=== PATIENT | male | born 1955 | race Caucasian/White ===

== ENCOUNTER 2024-01-02 18:05 | Emergency (ER) | payer MEDICARE, OTHER, SELFPAY ==
[2024-01-02 18:07] VITALS: BP 171/91
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
[2024-01-02] MEDS: ADACEL 0.5 ML IM (18:37)
[2024-01-02 18:54] LABS: % Basophils 0.4 % (0-2); % Eosinophils 0.2 % (0-6); % Immature Granulocytes 0.4 % (0-0.5); % Lymphocytes 7.5 % (20.5-51.1); % Monocytes 6.7 % (1.7-9.3); % Neutrophils 84.8 % (42.2-75.2); Absolute Basophils 0.1 10^3/uL (0-0.2); Absolute Immature Granulocytes 0.1 10^3/uL (0-0.05); Absolute Lymphocytes 1.1 10^3/uL (1.2-3.4); Hematocrit 39.1 % (39.0-52.0); Hemoglobin 13.9 g/dL (13.0-18.0); Mean Corp Hgb Conc. 35.5 g/dL (33.0-37.0); Mean Corpuscular Hgb 32.6 pg (27.0-31.0); Mean Corpuscular Volume 91.6 fL (80.0-94.0); Mean Platelet Volume 8.7 fL (7.4-10.4); Nucleated Red Blood Cells % 0 % (-); Platelet Count 315 10^3/uL (130-400); Red Blood Cell Count 4.27 10^6/uL (4.70-6.10); Red Cell Dist. Width 13.3 % (11.5-14.5); White Blood Cell Count 14.1 10^3/uL (4.8-10.8)
[2024-01-02 19:10] LABS: Blood Urea Nitrogen 23 mg/dl (9-20); Calcium 9.5 mg/dl (8.4-10.2); Carbon Dioxide 22 mmol/L (22-30); Chloride 99 mmol/L (98-107); Glucose 108 mg/dl (70-99); Potassium 3.9 mmol/L (3.5-5.1); Sodium 134 mmol/L (135-145); eGFR > 60.00
[2024-01-02 22:33] VITALS: BP 144/78
== END 2024-01-02 22:50 | disposition home or self-care (01) ==
LOC: EMR 18:05
PROVIDERS: EMERGENCY PHYSICIAN Emergency Medicine; FAMILY PHYSICIAN Family Medicine
DX: S40.211A Abrasion of right shoulder, initial encounter (principal); S60.512A Abrasion of left hand, initial encounter; S60.511A Abrasion of right hand, initial encounter; S50.811A Abrasion of right forearm, initial encounter; S20.219A Contusion of unspecified front wall of thorax, initial encounter; V29.008A Other motorcycle driver injured in collision with unspecified motor vehicles in nontraffic accident, initial encounter; Y92.410 Unspecified street and highway as the place of occurrence of the external cause; Z23 Encounter for immunization; J44.9 Chronic obstructive pulmonary disease, unspecified; I10 Essential (primary) hypertension
CPT/HCPCS: 99283; 90471; 70450; 71045; 71260; 72125; 73610; 74177; 80048; 85025; 86850; 86900; 86901; 90715; Q9967

== ENCOUNTER 2024-08-29 19:31 | Emergency (ER) | payer MEDICARE, OTHER, SELFPAY ==
[2024-08-29] VITALS (8 sets, daily range): BP systolic 100–144; BP diastolic 59–107
--- NOTE | 2024-08-29 19:59 | ED.GENMED ---
History of Present Illness
<Duc Goins PA-C - Last Filed: 08/29/24 22:14>
General
Chief Complaint: Heart Rate Problem
Source: patient
Exam Limitations: none
Time Seen by Provider: 08/29/24 19:50
History of Present Illness
History of Present Illness:
68-year-old male presents with onset of what he felt as palpitations and thinks his atrial fibrillation that started just about 2 hours prior to arrival. He was sitting watching television and he felt palpitations start. He has had a history of
paroxysmal atrial fibrillation. Not currently anticoagulated. He is on metoprolol. He has had a history of cardioversion.
Past History
<Duc Goins PA-C - Last Filed: 08/29/24 22:14>
Past History
ED Past Medical History: Arrthythmia, Cancer (Prostate), COPD and HTN
ED Past Surgical History: None
Social History
Alcohol: Occasional
Living: alone
Phy Exam
<Duc Goins PA-C - Last Filed: 08/29/24 22:14>
Physical Exam
Physical Exam:
General: Well-appearing male no acute respiratory distress
HEENT: Normocephalic atraumatic
Heart: Irregular rate and rhythm
Lungs: Clear
Course
<Duc Goins PA-C - Last Filed: 08/29/24 22:14>
Orders/Labs/Results
Orders:
Orders
08/29/24 19:32
ECG [Electrocardiogram (*1)] Urgent
Reason for Study: Palpitations
EKG- Treatment ONCE
08/29/24 20:51
Propofol [Diprivan] 20 ml .ROUTE .STK-MED
08/29/24 21:00
Electrocardiogram (*1) Urgent
Reason for Study: Other
Other Reason for Exam: cardioversion
EKG- Treatment ONCE
Vital Signs
Initial and Last Documented VS:
Initial Vital Signs
Temp Pulse Resp BP Pulse Ox
97.9 F 82 18 144/107 98
08/29/24 19:40 08/29/24 19:40 08/29/24 19:40 08/29/24 19:40 08/29/24 19:40
Last Documented Vital Signs
Temp Pulse Resp BP Pulse Ox
98.0 F 65 16 119/70 98
08/29/24 20:58 08/29/24 22:00 08/29/24 22:00 08/29/24 22:00 08/29/24 22:00
<Clarence Galan, DO - Last Filed: 08/29/24 21:47>
Orders/Labs/Results
Orders:
Orders
08/29/24 19:32
ECG [Electrocardiogram (*1)] Urgent
Reason for Study: Palpitations
EKG- Treatment ONCE
08/29/24 20:51
Propofol [Diprivan] 20 ml .ROUTE .STK-MED
08/29/24 21:00
Electrocardiogram (*1) Urgent
Reason for Study: Other
Other Reason for Exam: cardioversion
EKG- Treatment ONCE
Vital Signs
Initial and Last Documented VS:
Initial Vital Signs
Temp Pulse Resp BP Pulse Ox
97.9 F 82 18 144/107 98
08/29/24 19:40 08/29/24 19:40 08/29/24 19:40 08/29/24 19:40 08/29/24 19:40
Last Documented Vital Signs
Temp Pulse Resp BP Pulse Ox
98.0 F 65 16 119/70 98
08/29/24 20:58 08/29/24 22:00 08/29/24 22:00 08/29/24 22:00 08/29/24 22:00
Procedures
<Duc Goins PA-C - Last Filed: 08/29/24 22:14>
Cardioversion
Indication:: Afib
Synchronized?: Yes
Energy Used: 200 joules
Number of attempts: 1
Successful?: Yes
ASA Risk Score: Class I
Any reaction or bad outcome to prior sedation/anesthesia?: No history of a reaction
Sedation level to be attained: moderate
Chart and allergies reviewed: Yes
Patient reassessed prior to sedation: Yes
Time out completed at (validating right patient & procedure): 08:58
History of difficult intubation: No
Airway free of obstruction: Yes
Patient has a gag reflex: Yes
Patient is able to open mouth: Yes
Patient has no dentures: Yes
Patient has no loose teeth: Yes
Medication administered by Provider during Moderate Sedation: IV Propofol (mg)
Total dose administered: 70
Time drug administered: 08:58
Start Time: 08:58
Stop Time: 09:08
<Duc Goins PA-C - Last Filed: 08/29/24 22:14>
MDM/Problems Addressed
Differential Diagnosis Includes:
Patient with palpitations and sensation is in A-fib. This started just 2 hours ago. EKG confirms atrial fibrillation. His vitals are stable otherwise. Patient is positive his symptoms started 2 hours ago. He is not anticoagulated. Discussed
with the patient the importance of the onset and timing of the atrial fibrillation given the potential for cardioversion and risk for clot formation. He understood this and states it was just 2 hours ago.
<Duc Goins PA-C - Last Filed: 08/29/24 22:14>
*Critical Care Note
Total Time (30-74mins, 75-104mins- exclusive of procedures): Not Applicable
<Duc Goins PA-C - Last Filed: 08/29/24 22:14>
Update Note
Update Note:
Patient came in in atrial fibrillation with onset 2 hours prior to arrival. Consent was obtained for moderate sedation and cardioversion. Patient was successfully cardioverted with 200 J of synchronized energy. He immediately went back into a
sinus rhythm. Repeat EKG shows sinus rhythm with PACs. He recovered from his sedation and will be discharged. Patient has Eliquis at home. He was advised to restart Eliquis 5 mg twice a day until seen by his cardiology team.
ED Attending Note
<Duc Goins PA-C - Last Filed: 08/29/24 22:14>
-
Portions of this chart may have been created with voice recognition software.� Occasional wrong word or��sound alike� substitutions may have occurred due to the inherent limitations of voice recognition software.
<Clarence Galan DO - Last Filed: 08/29/24 21:47>
ED Attending Note
Patient seen and examined by attending physician: Yes
I performed the substantive portion of visit, reviewed & personally made and approve the management plan that is documented in note by myself or ELADIA.: Yes
ED Attending Note:
Patient is a 68-year-old male with a history of atrial fibrillation who approximately an hour prior to the emergency department was sitting down to watch a football game after eating macaroni and cheese and felt himself going to atrial fibrillation.
Patient has been off Eliquis for a while. Patient denies any chest pain or shortness of breath but does feel mildly lightheaded and feels his heart racing. Patient denies any recent GI or symptoms. Patient denies fever or chills. On physical
exam patient does not appear to be in any distress. Heart is irregular but normal rate. No neck vein distention. Lungs are clear. Abdomen soft nontender. Patient has good peripheral pulses and no edema or cyanosis. Patient agreed to electrical
cardioversion. Patient was sedated appropriately with propofol and was successfully cardioverted at 200 J. Patient tolerated procedure well. Patient will be referred back to his cost accountant. Patient is considering ablation.
Discharge Plan
Departure
Patient Disposition: Home (Routine Discharge)
Date of Disposition: 08/29/24
Time of Disposition: 22:13
Patient with high blood pressure during this ER visit?: No
Discharge Problem:
Atrial fibrillation with controlled ventricular response, Encounter for cardioversion procedure
Instructions: Atrial Fibrillation (DC), Cardioversion (DC), MODERATE SEDATION ADULT
Prescriptions:
No Action
metoprolol tartrate 25 MG tablet
12.5 mg PO BID
apixaban [Eliquis] 5 MG tablet
5 mg PO BID
Eliquis 5 mg tablet
5 mg PO BID Qty: 60 2RF
Referrals:
Bro Valadez MD [Family Provider] -
Activity Restrictions/Additional Instructions:
Please start Eliquis 5 mg twice a day. Please follow-up with your cost accountant. Return here if needed otherwise
Interventions
Interventions:
*Risk Screen - Suicide Last Done: 08/29/24 19:40
*General Assessment Last Done: 08/29/24 19:40
*Neglect/Abuse Screening Last Done: 08/29/24 19:40
ED- Fall Risk Assessment Last Done: 08/29/24 20:01
ED- Cardiac Assessment Last Done: 08/29/24 20:01
ED- Pulmonary Assessment Last Done: 08/29/24 20:01
Discharge Date and Time
Print Language: HUNGARIAN
== END 2024-08-29 22:49 | disposition home or self-care (01) ==
LOC: EMR 19:31
PROVIDERS: EMERGENCY PHYSICIAN Emergency Medicine; FAMILY PHYSICIAN Family Medicine
DX: I48.91 Unspecified atrial fibrillation (principal); I10 Essential (primary) hypertension; J44.9 Chronic obstructive pulmonary disease, unspecified; Z79.899 Other long term (current) drug therapy
CPT/HCPCS: 92960; 99152; 99285; 93005

== ENCOUNTER 2024-11-30 10:00 | Day surgery (SDC) | payer MEDICARE, OTHER, SELFPAY ==
[2024-11-30 11:19] VITALS: BMI 26.4
== END 2024-11-30 12:45 ==
LOC: CATH 10:00
PROVIDERS: ATTENDING PHYSICIAN Student in an Organized Health Care Education/Training Program; FAMILY PHYSICIAN Family Medicine; OTHER PHYSICIAN Internal Medicine Cardiovascular Disease
DX: I48.0 Paroxysmal atrial fibrillation (principal); I10 Essential (primary) hypertension; E78.00 Pure hypercholesterolemia, unspecified; Z87.891 Personal history of nicotine dependence; Z85.46 Personal history of malignant neoplasm of prostate; Z79.01 Long term (current) use of anticoagulants
CPT/HCPCS: 92960; 93005

== ENCOUNTER 2025-01-12 07:57 | Day surgery (SDC) | payer MEDICARE, OTHER, SELFPAY ==
[2024-12-24 09:01] VITALS: BMI 27.7
[2025-01-12] VITALS (10 sets, daily range): BP systolic 88–129; BP diastolic 52–73; BMI 26.3
[2025-01-12 10:34] LABS: ACT-LR - POC 292 Seconds (116-155)
[2025-01-12 11:09] LABS: ACT-LR - POC > 397 Seconds (116-155)
[2025-01-12 11:13] LABS: ACT-LR - POC 393 Seconds (116-155)
--- NOTE | 2025-01-12 11:26 | ITS.CL.ABL ---
[facility] - Ablation
Ablation
Procedure Report:
AFIB / A flutter ablation:
Mr. Lucero is a very pleasant 69 yr old gentleman with medical history significant for symptomatic paroxysmal atrial fibrillation is here in the EP lab for atrial fibrillation ablation
Date of Procedure:
01/12/2025
Indications:
Symptomatic paroxysmal atrial fibrillation
Pre-Operative Diagnosis:
Paroxysmal atrial fibrillation
Post-Operative Diagnosis:
Paroxysmal atrial fibrillation
Procedure Performed:
Atrial fibrillation ablation with wide area circumferential ablation (WACA) approach for pulmonary vein isolation
Performing Physician:
Jerrell Slaughter MD
Assistants:
EP staff
Anesthesia:
See anesthesia records
Detailed Description of the Procedure:
Written informed consent was obtained from the patient after a full explanation of the risks and benefits of the procedure including the risks of sedation and anesthesia.
The patient was brought to the electrophysiology laboratory in stable condition in fasting state. Continuous electrocardiographic and hemodynamic monitoring was initiated.
The initial rhythm was sinus rhythm.
The procedure site was meticulously prepared with surgical scrub and allowed to dry with no pooling. Sterile draping was applied to cover the procedure site. The image intensifier was draped with sterile bag and positioned over the patient. After
infusion of local anesthetic, vascular access was obtained under ultrasound guidance and sheaths were placed over guide wire as detailed below.
The images of the ultrasound of the femoral vessels were stored in patient chart.
Sheath and Catheter Placement:
In the right femoral vein, a 10-Kyrgyz sheath was placed under ultrasound guidance for use during the ablation procedure. In the right femoral vein, another 9-Fr sheath was placed for use during intracardiac echo procedure.
The sheaths were upgraded as needed during the case. Intracardiac catheters were positioned using direct fluoroscopic guidance.� ICE catheter was placed in RA. The following catheters / sheaths were placed
Sheaths:
��������� Agilis sheath in right femoral vein upgraded from 10Fr in right femoral vein
��������� 9Fr in right femoral vein
Catheters:
��������� The Affera Sphere 9 catheter -bidirectional D/F� - at locations of HRA, LA and LV.
��������� ICE catheter -AccuNav -� at locations of RA, SVC, and RV.
Heparin was initiated after the access was obtained.
Intracardiac ECHO:
An 8-Kyrgyz AcuNav intracardiac ECHO (ICE) probe was advanced through the 9-Kyrgyz sheath in the left femoral vein into the right atrium under fluoroscopic and ICE ultrasound image guidance and a baseline ECHO study was performed. The left atrial
size was mildly dilated. There was trace tricuspid regurgitation. The aortic valve was grossly normal. There was normal left ventricular size and function. There is a trace pericardial effusion. The MARIA FER[place] has baseline normal velocities. The pulmonary
had good flow identified.
During the procedure, ICE was used for monitoring of complications, guidance of trans-septal puncture, monitor the catheter position and tracking ablation lesions. No change in the pericardial space noted throughout the procedure.
Trans-septal Puncture:
Heparin was initiated and infused to maintain appropriate ACT. A J-tipped guidewire was advanced through into the superior vena cava under fluoroscopic and ICE guidance. The Agilis sheath with BRK needle was advanced into the superior vena cava over
the guidewire. The apparatus was withdrawn until it was in contact with the fossa ovalis. The position was adjusted based on fluoroscopy and ultrasound images from ICE. Under fluoroscopic, hemodynamic and ICE ultrasound guidance, left atrium was
cannulated by advancing the needle. Once atrial septum was cannulated, the needle was pulled back and the guide wire was advanced through the needle into the left atrium. The guide wire was advanced into the left superior pulmonary vein. Both the
sheath and the dilator was advanced into the left atrium. The dilator with the needle was withdrawn. Blood was aspirated from the Agilis sheath and arterial blood confirmed. The sheath was flushed. Saline injection noted into the left atrium on ICE.
The waveform of the LA pressure was recorded. The mapping catheter was advanced in the Agilis sheath into the left pulmonary vein.
3D Electroanatomic Mapping:
Using the Sphere 9 Affera catheter advanced through Agilis sheath into the left atrium, an electroanatomic map (EAM) of the left atrium was created using Affera� mapping system with Prism-1 software. The map was used for localization of catheter
position and tacking of ablation lesions. The EAM of the left atrium showed a total of 4 PVs with a two left and two right sided pulmonary veins with all electrically connected to the body the LA. It showed no significant scar on the posterior wall
of the LA. The LA was dilated in size.
Following the EAM, preparation were made for ablation.
Ablation:
Ablation # 2: Pulmonary vein Isolation:
Glycopyrrolate 0.2 mg was given prior to the placement of ablation.
Pulsed field ablation was performed using an open irrigation, bidirectional, contact sensing, dual energy ablation catheter (UsingMilesa sphere -9) by completing the circumferential lesions around the left and right pulmonary veins achieving pulmonary
vein isolation.
Confirmation of the PVI and bidirectional block:
Following achievement of entrance block at the pulmonary veins, pacing from the Sphere 9 affera catheter in each of the four veins at 20 milliamps for 4 milliseconds showed entrance and exit block.
The LA was mapped with The UsingMilesa� mapping system with Prism-1 software in sinus rhythm confirming the line of block at the ablation lesions lines.
�
EP study:
Sinus Node Function: The sinus node functions are within acceptable normal range.
Atrioventricular [place] Function: �Normal AV conduction noted with normal AV [place] conduction time.
Procedure End
ICE study was done again that showed no epicardial accumulation. No complications noted.
Following the completion of the EP study, catheters were removed. Protamine 40 mg was given at the end of the procedure and ACT was checked repeatedly. The sheaths were removed and hemostasis achieved with VASCADE and manual compression after
acceptable ACT is achieved.
Left atrial Pressure:
Pre-Procedure: Mean LA pressure was 10mmHg
Post-Procedure: Mean LA pressure was 11mmHg
Estimated Blood loss:
<10 cc
Specimens Removed:
None.
Implants / Devices:
None
Urine output:
None
Packs / Drains/ Tubes:
None
Instrument / Sponge Count Correct:
Yes
Complications of the Procedure:
None
Condition of Patient at Time of Transfer:
Hemodynamically stable with no neurological or vascular compromise.
Summary:
��������� Successful atrial fibrillation ablation with circumferential bidirectional line of block at pulmonary vein antra (Pulmonary vein isolation)
Figures from the Procedure:
Figure 1: The electroanatomic mapping (EAM) of the left atrium with bipolar voltage (purple indicates normal electrical activity with red as no myocardial muscle electric activity indicating a line of block or scar.
--- NOTE | 2025-01-12 14:52 | W.PN.UPDATE ---
Update Note
Progress Note Update
69 yo WM s/p PVI (same day) He denies cp, sob, tio diet, EKG SB, R fem site c/d/i no HT, soft. He will resume Eliquis at home and continue metoprolol. Activity restrictions reviewed. He will f/u [employer]ESS in 2 weeks then continue cardiac care with
Erick. He is for d/c home after 230pm
== END 2025-01-12 14:30 | disposition home or self-care (01) ==
LOC: CATH 07:57
PROVIDERS: ATTENDING PHYSICIAN Internal Medicine Cardiovascular Disease; FAMILY PHYSICIAN Family Medicine; OTHER PHYSICIAN Internal Medicine Cardiovascular Disease
DX: I48.0 Paroxysmal atrial fibrillation (principal); I07.1 Rheumatic tricuspid insufficiency; I31.39 Other pericardial effusion (noninflammatory); Z79.01 Long term (current) use of anticoagulants; Z79.899 Other long term (current) drug therapy; I10 Essential (primary) hypertension; E78.5 Hyperlipidemia, unspecified; J44.9 Chronic obstructive pulmonary disease, unspecified
CPT/HCPCS: C1769; C1766; C1733; C1892; C1759; 85347; 93005; 93656; C1760

== ENCOUNTER → 2025-09-09 08:48 | Outpatient (REF) | payer MEDICARE, OTHER, SELFPAY ==
[2025-09-09 09:43] LABS: Hematocrit 43.2 % (39.0-52.0); Hemoglobin 14.5 g/dL (13.0-18.0); Mean Corp Hgb Conc. 33.6 g/dL (33.0-37.0); Mean Corpuscular Volume 95.6 fL (80.0-94.0); Nucleated Red Blood Cells % 0 % (-); Platelet Count 318 10^3/uL (130-400); Red Cell Dist. Width 13.7 % (11.5-14.5)
[2025-09-09 09:56] LABS: Urine Character Clear (Clear)
[2025-09-09 10:31] LABS: ALT (SGPT) 26 U/L (0-50); AST (SGOT) 29 U/L (17-59); Albumin 4.5 g/dl (3.5-5.0); Alkaline Phosphatase 55 U/L (38-126); Blood Urea Nitrogen 15 mg/dl (9-20); Calcium 9.2 mg/dl (8.4-10.2); Carbon Dioxide 31 mmol/L (22-30); Chloride 100 mmol/L (98-107); Glucose 92 mg/dl (70-99); HDL Cholesterol 94 mg/dl; LDL Cholesterol, Calculated 82 mg/dl; Potassium 4.3 mmol/L (3.5-5.1); Sodium 137 mmol/L (135-145); Total Protein 7.4 g/dl (6.3-8.2); Very Low Density Lipoprotein 15 mg/dl (0-30); eGFR > 60.00
[2025-09-09 10:32] LABS: Microalb - Urine Creatinine 10.800 mg/dl
[2025-09-09 10:43] LABS: Microalbumin, Random Urine <0.6 mg/dl (0.6-1.7)
[2025-09-09 10:54] LABS: PSA, Total - Screen < 0.06 ng/ml (0.0-4.0); TSH 1.27 uIU/ml (0.47-4.68)
[2025-09-09 11:02] LABS: Glycohemoglobin (HgbA1c) 5.4 % (4.0-5.9)
[2025-09-09 11:19] LABS: Urine Red Blood Cell 0-2 /HPF (0-2); Urine Squamous Cell 0-2 /LPF (Few); Urine White Cell 0-2 /HPF (0-5)
== END ==
LOC: REG 08:48
PROVIDERS: ATTENDING PHYSICIAN Family Medicine
DX: Z00.00 Encounter for general adult medical examination without abnormal findings (principal); E78.00 Pure hypercholesterolemia, unspecified; Z79.899 Other long term (current) drug therapy; Z12.5 Encounter for screening for malignant neoplasm of prostate
CPT/HCPCS: 36415; 80053; 80061; 81003; 81015; 82043; 82570; 83036; 84443; 85025; G0103